=== PATIENT | female | born 1950 | race Caucasian/White ===

== ENCOUNTER 2018-04-17 08:50 | Emergency (ER) | payer MEDICARE, OTHER ==
[~2018-04-17] VITALS: Ht 160 cm; Wt 74.8 kg
[~2018-04-17 08:50] MED LIST: ADVAIR 100-501 EACH INH; ADVAIR 500-501 EACH INH; ADVAIRDISKUS; ALBUTEROL INH; ALEVE220 M1 PO; ALEVE220 MG PO; ALLERGY INJECTION; ALTACE; ALTACE PO; ALTACE10 M1 PO; ALTACE10 MG PO; APAP500 PO; ARIPIPRAZOLE5 MG PO; ASPIR-TRIN325 MG PO; BLADDER 2.2 TA1 EACH PO; BUPROPION PO; BUPROPION XL150 MG PO; CALCIUM; CALCIUM 600 +1 EA11 PO; CALCIUM500 M1 PO; CARVEDILOL3.125 MG PO; CELEBREX 200 M200 M1 PO; CELEXA; CELEXA 20 MG TA20 MG PO; CELEXA PO; CELEXA20 MG PO; CEPHALEXIN 500500 M2 PO; CLARITIN10 M2 PO; CLARITIN10 MG PO; CLONAZEPAM 0.50.5 M1 PO; CLONIDINE0.1 PO; DOCUSATE SODIU100 MG; ETODOLAC500 MG PO; FERRO-TIME325 MG PO; FERROUS SU220 MG/53 PO; FIORICET; FISH OIL + D31 EACH PO; FISH OIL 1,0001 EAC5; FISH OIL 1,001000 M1 PO; FISH OIL 500 M1 EAC1 PO; FISH OIL 500 M1 EACH PO; FISHOIL; HYDROCODON-ACE1 EAC7 PO; HYDROCODONE-AP1 EAC6 PO; HYDROCODONE-APA1 TA1 PO; IRON PO; IRON325 PO; KEFLEX250 M1 PO; KEFLEX500 MG PO; LASIX 40 MG TAB40 M2 PO; LIDODERM 5%1 PATCH TOP; LIPITOR 20 MG T20 M1 PO; LIPITOR40 MG PO; LODINE 200MG C200 M1 PO; LODINE XL400 MG PO; LORTAB 5 MG/5001 TA1 PO; LOVENOX; MIRALAX255 GM; MULTIVITAMINS PO; NEURONTIN 300300 M1 PO; NORCO 5-325 TA1 EAC1 PO; NORCO 5-325 TA1 EACH PO; NORCO 7.5-3251 EACH PO; ONE-A-DAY WOMENS PO; OXYCODONE HCL5 M1 PO; OXYCONTIN30 MG PO; OXYIR5 MG; PREMARIN0.625 MG PO; PRILOSEC 20 MG20 MG; PROAIR HFA8.5 GM INH; RESTORIL15 MG PO; ROXICODONE5 MG PO; SEROQUEL; SEROQUEL 50 MG50 M1 NG; SIMVASTATIN; STOOL SOFTENER1 EAC2; TRAMADOL; TYLENOL325 MG PO; ULTRAM 50MG TAB50 MG PO; VENTOLIN HFA 1818 GM INH; VICODIN 5-5001 EACH; VICODIN 5-5001 EACH PO; VICODIN ES TAB1 EACH; VICOPROFEN 2001 EACH PO; WELLBUTRIN 100100 MG PO; WELLBUTRIN SR150 MG PO; WELLBUTRIN XL300 M1 PO; WELLBUTRIN XL300 MG PO; XARELTO10 M1 PO; ZOCOR PO; ZOFRAN4 MG PO
[2018-04-17] MEDS ORDERED: ABILIFY10 MG PO (09:04)
[2018-04-17] MEDS ORDERED: PERCOCET 5-3251 EACH PO (09:46)
[2018-04-17 12:05] VITALS: BP 193/95
== END 2018-04-17 12:05 | disposition home or self-care (01) ==
LOC: M.ERS 08:50
DX: S83.8X1A Sprain of other specified parts of right knee, initial encounter (principal); J45.909 Unspecified asthma, uncomplicated; F31.9 Bipolar disorder, unspecified; I10 Essential (primary) hypertension; F41.9 Anxiety disorder, unspecified; M19.90 Unspecified osteoarthritis, unspecified site; Z86.14 Personal history of Methicillin resistant Staphylococcus aureus infection; Z90.710 Acquired absence of both cervix and uterus; Z96.651 Presence of right artificial knee joint; Z96.642 Presence of left artificial hip joint; X58.XXXA Exposure to other specified factors, initial encounter; Y93.89 Activity, other specified; Y92.89 Other specified places as the place of occurrence of the external cause; Y99.8 Other external cause status